=== PATIENT | female | born 1970 | race Caucasian/White ===

== ENCOUNTER → 2021-08-12 | Outpatient (CLI) | payer OTHER ==
--- NOTE | 2021-08-12 16:26 | CT ---
EXAMINATION TYPE: CT abdomen pelvis w con DATE OF EXAM: 08/12/2021 COMPARISON: None INDICATION: severe abdomen pain, RT quadrant pain DLP: 1513.80 mGycm, Automated exposure control for dose reduction was used. CONTRAST: 100 mL of Isovue 300. Study performed with Oral Contrast TECHNIQUE: Axial images were obtained from above the diaphragm to the pubic rami in the axial plane a t 5 mm thick sections. Reconstructed images are reviewed on the computer in the coronal plane. FINDINGS: Limited CT sections are obtained the lung bases. The lung bases are clear. CT ABDOMEN: Liver: Normal Spleen: Normal Pancreas: Normal Adrenal glands: The adrenal glands are normal. Gallbladder: Normal Kidneys: No masses are evident. No hydronephrosis is present. No cysts are present. Delayed images were obtained through the kidneys, which remain unremarkable. Aorta: Normal. Inferior vena cava: Normal. CT PELVIS: Loops of bowel within the abdomen and pelvis are normal. There are loops of bowel which are incom pletely distended or lack oral contrast limiting their evaluation. Appendix: Not clearly identified. No suspicious dilated tubular structure or inflammatory changes are evident. Urinary bladder: Normal. Genitourinary structures: Uterus and ovaries are not identified. No free fluid is within the pelvis. Osseous structures: No suspicious lytic or sclerotic lesions. IMPRESSIONS: 1. No suspicious acute changes radiographically apparent. 2. Poor identification of the appendix. Clinical management of any suspected appendicitis will be req uired. No suspicious radiographic evidence of acute appendicitis based on current imaging
== END | disposition home or self-care (01) ==
LOC: RADCTMAIN 13:28
PROVIDERS: ATTEND Family Medicine
DX: R10.9 Unspecified abdominal pain (principal)
CPT/HCPCS: 74177; Q9967

== ENCOUNTER → 2022-04-09 | Outpatient (CLI) | payer OTHER ==
--- NOTE | 2022-04-10 09:23 | NM ---
EXAMINATION TYPE: NM thyroid image w uptake DATE OF EXAM: 04/10/2022 COMPARISON: NONE HISTORY: Abnormal thyroid function TECHNIQUE: Thyroid iodine uptake is calculated and images performed after the oral administration of 316 uCi 1-123 Capsule. FINDINGS: There is heterogeneous distribution of activity throughout the gland. The 4 hour iodine up take is calculated at 6.4% (normal range 8-14%). The 24-hour iodine uptake is calculated at 14.6% (no rmal range 15-35%). IMPRESSION: 1. Findings suggestive of borderline hypothyroidism. 2. Mildly heterogeneous uptake without evidence of discrete hot or cold nodule could be associated wi th thyroiditis. Correlate with ultrasound.
== END | disposition home or self-care (01) ==
LOC: RADNMMAIN 07:55
PROVIDERS: ATTEND Family Medicine
DX: R94.6 Abnormal results of thyroid function studies (principal)
CPT/HCPCS: 78014; A9516

== ENCOUNTER 2022-10-13 07:20 | Emergency (ER) | payer OTHER ==
[2022-10-13 07:28] VITALS: TEMP 98
[2022-10-13] MEDS ORDERED: KETOROLAC 15 MG/ML 1 ML VIAL IM STA (07:50)
[2022-10-13] MEDS ORDERED: LORazepam 2 MG/ML INJ IM STA (07:50)
--- NOTE | 2022-10-13 07:53 | ED ---
Upper Extremity HPI - General Chief Complaint: Extremity Injury, Upper Stated Complaint: R. Shoulder Pain Time Seen by Provider: 10/13/22 07:40 Source: patient, family Mode of arrival: wheelchair Limitations: no limitations - History of Present Illness Initial Comments: 51-year-old female who presents with complaints of right shoulder pain going on for the past several days. She states she had a previous injury but was doing a lot of lifting of groceries and other things several days ago and has been having severe sharp pain since he's taken Tylenol 3 she's taking tramadol she see ibuprofen without relief. No other injuries reported no other pain anywhere. She is dominantly right handed. She states is no loss of function except for the pain. MD Complaint: Injury to:: right, shoulder - Related Data Previous Rx's Medication Instructions Recorded Ketorolac [Toradol] 10 mg PO Q6HR #20 tab 10/13/22 Orphenadrine [Norflex] 100 mg PO Q12H #7 tab 10/13/22 Allergies Allergy/AdvReac Type Severity Reaction Status Date / Time Penicillins Allergy Dyspnea Verified 10/13/22 07:28 Review of Systems ROS Statement: Those systems with pertinent positive or pertinent negative responses have been documented in the HPI. ROS Other: All systems not noted in ROS Statement are negative. Past Medical History Past Medical History: No Reported History History of Any Multi-Drug Resistant Organisms: None Reported Past Surgical History: Section, Hysterectomy, Tonsillectomy Past Psychological History: No Psychological Hx Reported Smoking Status: Never smoker Past Alcohol Use History: Rare Past Drug Use History: None Reported General Exam - General Exam Comments Initial Comments: This is a well-developed well-nourished awake alert oriented 4 female Limitations: no limitations General appearance: alert, anxious, in distress Head exam: Present: atraumatic, normocephalic, normal inspection Eye exam: Present: normal appearance, PERRL, EOMI. Absent: scleral icterus, conjunctival injection, periorbital swelling Neck exam: Present: normal inspection, full ROM Respiratory exam: Present: normal lung sounds bilaterally. Absent: respiratory distress, wheezes, rales, rhonchi, stridor Cardiovascular Exam: Present: regular rate, normal rhythm, normal heart sounds. Absent: systolic murmur, diastolic murmur, rubs, gallop, clicks Extremities exam: Present: normal inspection, tenderness, normal capillary refill, other (Tenderness palpation of the anterior shoulder joint with tenderness over the rotator cuff musculature. No evidence of subluxation at this time no tenderness over the rhomboid musculature. No tenderness over the trapezius at this time.). Absent: full ROM Back exam: Present: normal inspection, full ROM Neurological exam: Present: alert, oriented X3, CN II-XII intact Psychiatric exam: Present: normal affect, anxious Skin exam: Present: warm, dry, intact, normal color. Absent: rash Course Vital Signs 10/13/22 07:24 Temperature 98.0 F Pulse Rate 95 Respiratory 20 Rate Blood Pressure 139/89 O2 Sat by Pulse 95 Oximetry Medical Decision Making - Medical Decision Making Was pt. sent in by a medical professional or institution? @ No-[by , JOSE, VETERINARIAN ASSISTANT, urgent care, hospital, or intermediate] Did you speak to anyone other than the patient for history? @ No-[EMS, parent, family, police, friend?] Did you review nursing and triage notes? @ Yes -[agree or disagree, why?] Were old charts reviewed? @ No-[outside hosp., previous admissions, EMS record, old EKG, old radiological studies, urgent care reports/EKGs, intermediate records?] Differential Diagnosis? @ No -[chest pain, altered mental status abdominal pain women, abdominal pain men, vaginal bleeding, weakness, fever, dyspnea, syncope, headache, dizziness, GI bleed, back pain, seizure] EKG interpreted by me (3pts min.)? @ Yes evidence of calcific tendinosis no fracture no subluxation -[none] X-rays interpreted by me (1pt min.)? @ Nonapplicable -[none] CT interpreted by me (1pt min.)? @ -[none] U/S interpreted by me (1pt. min.)? @ -[none] What testing was considered but not performed? (CT, X-rays, U/S, labs)? Why? @ [CT, X-rays, U/S, labs? Why?] What meds were considered but not given? Why? @ -[none] Did you discuss the management of the patient with other professionals? @ -[professionals i.e. , JOSE, VETERINARIAN ASSISTANT, Lab, RT, Psych Nurse, Auto Body Mechanic, Plasterer Maintenance, Teacher, Casino Supervisor, manager of case? Give summary] Did you reconcile home meds? @ -[none] Was smoking cessation discussed for >3mins.? @ -[none] Was critical care preformed (if so, how long)? @ -[none] Were there social determinants of health that impacted care today? How? (Homelessness, low income, unemployed, alcoholism, drug addiction, transportation, low edu. Level, literacy, decrease access to med. care, custodial, rehab)? @ -[Homelessness, low income, unemployed, alcoholism, drug addiction, transportation, low edu. Level, literacy, decrease access to med. care, custodial, rehab?] Was there de-escalation of care discussed even if they declined? (Discuss DNR or withdrawal of care, Hospice)? @ -[Discuss DNR or withdrawal of care, Hospice?] What co-morbidities impacted this encounter? (DM, HTN, Smoking, COPD, CAD, Cancer, CVA, Hep., AIDS, mental health diagnosis, sleep apnea, morbid obesity)? @ Discharged-[DM, HTN, Smoking, COPD, CAD, Cancer, CVA, Hep., AIDS, mental health diagnosis, sleep apnea, morbid obesity?] Was patient admitted / discharged? @ Patient was discharged I did discuss the x-ray and clinical findings patient will follow-up with her doctor or with orthopedic surgery-[hospital course] Undiagnosed new problem with uncertain prognosis? @ -[none] Drug Therapy requiring intensive monitoring for toxicity (Heparin, Nitro, Insulin, Cardizem)? @ -[none] Were any procedures done? @ -[none] Diagnosis/symptom? @ -[default] Acute, or Chronic, or Acute on Chronic? @ -[default] Uncomplicated (without systemic symptoms) or Complicated (systemic symptoms)? @ -[default] Side effects of treatment? @ -[none] Exacerbation, Progression, or Severe Exacerbation] @ -[no] Poses a threat to life or bodily function? @ -[no] - Radiology Data Interpreted by me: X-ray interpreted by me in no acute fractures or subluxation evidence of calcific tendinosis Disposition Clinical Impression: Right shoulder strain Disposition: HOME SELF-CARE Condition: Good Instructions (If sedation given, give patient instructions): Rotator Cuff Injury (ED) Additional Instructions: Warm compresses when necessary continue with your sling for one or 2 days follow-up with your doctor or with orthopedics Prescriptions: Orphenadrine [Norflex] 100 mg PO Q12H #7 tab Ketorolac [Toradol] 10 mg PO Q6HR #20 tab Is patient prescribed a controlled substance at d/c from ED?: No Referrals: Jimena Purcell DO [Primary Care Provider] - 1-2 days Lizeth Denny DPM [REFERRING] - 1-2 days Decision Date: 10/13/22 Decision Time: 09:18
--- NOTE | 2022-10-13 08:19 | XR ---
EXAMINATION TYPE: XR shoulder complete RT DATE OF EXAM: 10/13/2022 8:06 AM INDICATION: Patient age:Female; 51 years old; Reason for study: Pain; COMPARISON: None TECHNIQUE: The right shoulder was examined in AP, internally rotated and scapular Y projections. . FINDINGS: Calcification at the origin of the supraspinatus tendon measuring up to 12 mm. No evidence of acute osseous pathology, joint dislocation, or soft tissue swelling. The remaining por tions of the visualized chest are unremarkable. IMPRESSION: 1. 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 2. No evidence of acute fracture.
[2022-10-13 09:28] VITALS: BP 142/89; PULSE 92; RESP 18
== END 2022-10-13 09:28 | disposition home or self-care (01) ==
LOC: EC 07:20
DX: S46.011A Strain of muscle(s) and tendon(s) of the rotator cuff of right shoulder, initial encounter (principal); X50.0XXA Overexertion from strenuous movement or load, initial encounter
CPT/HCPCS: 73030; 99283; 96372 ×2; J2060; J1885

== ENCOUNTER → 2023-06-02 | Outpatient (CLI) | payer OTHER ==
--- NOTE | 2023-06-02 21:34 | MR ---
EXAMINATION TYPE: MR lumbar spine wo con DATE OF EXAM: 06/02/2023 9:21 PM COMPARISON: CT 08/12/2021. CLINICAL INDICATION: Female, 52 years old with history of M54.16; PHH, Low back pain that radiates do wn legs TECHNIQUE: Multi planar, multi sequence imaging was performed utilizing: T1-weighted, T2-weighted, a nd turbo inversion recovery imaging of the lumbar spine. IV Contrast: None. FINDINGS: Alignment: The lumbar vertebral bodies have preserved heights and alignment. Cord: The conus medullaris and the distal spinal cord appear unremarkable with regards to their signa l intensity and morphology. Bones/Discs: Bone signal is within normal limits. No abnormal bony edema on inversion recovery sequen kathya. Minimal osteophyte formation and facet joint arthropathy. Intervertebral disc signal is maintain ed. T12-L1: No evidence of significant spinal canal stenosis or neural foraminal stenosis. L1-L2: No evidence of significant spinal canal stenosis or neural foraminal stenosis. L2-L3: No evidence of significant spinal canal stenosis or neural foraminal stenosis. L3-L4: No evidence of significant spinal canal stenosis or neural foraminal stenosis. L4-L5: No evidence of significant spinal canal stenosis or neural foraminal stenosis. L5-S1: The disc is rounded posterior morphology without significant spinal canal stenosis. Facet join t arthropathy with mild neural foraminal stenosis. No significant spinal canal or neural foraminal stenosis in the remainder of the visualized levels. Other findings: None. IMPRESSION: 1. No definitive evidence of disc herniation or significant spinal canal or neural foraminal stenosi s. 2. Minimal disc degeneration with associated osteoarthritic changes.
== END | disposition home or self-care (01) ==
LOC: RADMRIMAIN 20:45
PROVIDERS: ATTEND Physical Medicine & Rehabilitation
DX: M51.16 Intervertebral disc disorders with radiculopathy, lumbar region (principal); M47.26 Other spondylosis with radiculopathy, lumbar region
CPT/HCPCS: 72148

== ENCOUNTER → 2023-06-30 | Outpatient (CLI) | payer OTHER ==
--- NOTE | 2023-06-30 16:08 | US ---
EXAMINATION TYPE: US gallbladder DATE OF EXAM: 06/30/2023 COMPARISON: CT 2020 CLINICAL INDICATION: Female, 52 years old with history of R10.11 RIGHT UPPER QUADRANT PAIN; RUQ pain TECHNIQUE: Multiple sonographic images of the right upper quadrant are obtained. FINDINGS: EXAM MEASUREMENTS: Liver Length: 15.1 cm Gallbladder Wall: 0.2 cm CBD: 0.6 cm Right Kidney: 11.3 x 5.7 x 6.6 cm Pancreas: visualized portions wnl, tail limited by overlying midline bowel gas Liver: wnl Gallbladder: mildly hydropic, multiple mobile stones. No surrounding fluid or wall thickening. Evidence for sonographic Banks's sign: yes CBD: borderline dilated Right Kidney: wnl IMPRESSION: 1. Cholelithiasis with multiple mobile stones and mild gallbladder distention. Sonographic Banks sig n is reported positive but this may reflect for pain. There is no wall thickening or surrounding flui d at this time. If concern for early acute cholecystitis, HIDA scan can be considered. 2. Bile duct borderline in caliber at 6 mm may be chronic for the patient. Correlate with alkaline ph osphatase and bilirubin levels to exclude early biliary obstruction.
== END | disposition home or self-care (01) ==
LOC: RADUSWWP 07:55
PROVIDERS: ATTEND Surgery Plastic and Reconstructive Surgery
DX: K80.20 Calculus of gallbladder without cholecystitis without obstruction (principal)
CPT/HCPCS: 76705